=== PATIENT | female | born 1990 | race Caucasian/White ===

== ENCOUNTER → 2021-03-31 | Outpatient (CLI) | payer OTHER ==
[2021-03-31 13:12] LABS: BASO % 0.4 % (0.0-1.0); EOS # 0.3 10^3/uL (0.0-0.5); EOS % 3.4 % (0.0-3.0); HEMATOCRIT 42.8 % (36.0-47.0); HEMOGLOBIN 13.7 g/dl (12.0-15.5); LYMPH % 33.2 % (24.0-44.0); MEAN CORPUSCULAR HEMOGLOBIN 26.2 pg (27.0-33.0); MONO # 0.6 10^3/uL (0.0-0.8); MONO % 6.6 % (2.0-8.0); NEUTROPHILS # 5.1 10^3/uL (1.5-8.5); NEUTROPHILS % 56.2 % (36.0-66.0); PLATELET COUNT, AUTOMATED 241 10^3/uL (150-450); RED BLOOD COUNT 5.22 10^6/uL (4.00-5.40)
[2021-03-31 13:41] LABS: ALBUMIN 3.7 GM/DL (3.2-5.2); ALT/SGPT 22 U/L (12-78); BILIRUBIN,TOTAL 0.5 MG/DL (0.2-1.0); BLOOD UREA NITROGEN 10 MG/DL (7-18); CALCIUM LEVEL 8.5 MG/DL (8.5-10.1); CARBON DIOXIDE LEVEL 26 MEQ/L (21-32); CHLORIDE LEVEL 105 MEQ/L (98-107); CHOLESTEROL LEVEL 139 MG/DL (<200); CHOLESTEROL RISK RATIO 3.021 (<5); CREATININE FOR GFR 0.73 MG/DL (0.55-1.30); FREE T4 0.96 NG/DL (0.76-1.46); GLOMERULAR FILTRATION RATE > 60.0 (>60); GLUCOSE, FASTING 93 MG/DL (70-100); HDL CHOLESTEROL 46 MG/DL (>40); LDL CHOLESTEROL 74 MG/DL (<100); NON-HDL-C 93 MG/DL; POTASSIUM SERUM 4.4 MEQ/L (3.5-5.1); SODIUM LEVEL 136 MEQ/L (136-145); THYROID STIMULATING HORMONE 0.896 uIU/ML (0.358-3.740); TOTAL PROTEIN 7.6 GM/DL (6.4-8.2); TRIGLYCERIDES LEVEL 94 MG/DL (<150)
[2021-03-31 13:54] LABS: HEMOGLOBIN A1c 5.3 %
== END ==
LOC: M LAB 12:09
PROVIDERS: ATTEND Physician Assistant
DX: F45.8 Other somatoform disorders (principal); E66.8 Other obesity; Z13.220 Encounter for screening for lipoid disorders

== ENCOUNTER → 2023-04-18 | Outpatient (REF) | payer OTHER | LOC: M SFHCDERM 10:51 | PROVIDERS: ATTEND Nurse Practitioner Family | DX: L71.9 Rosacea, unspecified (principal); Z53.9 Procedure and treatment not carried out, unspecified reason ==